=== PATIENT | male | born 1960 | race Caucasian/White ===

== ENCOUNTER → 2018-05-28 09:27 | Outpatient (CLI) | payer OTHER, SELFPAY ==
--- NOTE | 2018-05-28 | DI.MRI.S_ITS ---
PROCEDURE: MR ORBITS FACE NECK WO/W CON INDICATIONS: Ischemic optic neuropathy, left eye TECHNIQUE: Noncontrast sagittal T1 spin echo, axial FLAIR, axial gradient echo, axial diffusion and ADC acquired through the brain. Coronal STIR, thin-slice axial T1 spin echo through the orbits. After the administration of contrast, thin-slice axial and coronal T1 spin echo with fat saturation through the orbits, axial T1 spin echo with fat saturation through the brain. COMPARISON: None. FINDINGS: Image quality: Excellent. Orbits: Globes are symmetrical. The optic nerves are normal in size, without abnormal signal or enhancement. No retrobulbar masses or fat abnormalities. The extra-ocular muscles are normal and symmetric in appearance. Lacrimal glands are normal. Optic chiasm is normal. Periorbital soft tissues appear normal. CSF spaces: Ventricles are normal in size and shape. Basal cisterns are patent. No extra-axial fluid collections. Brain: No intracranial bleeds or mass effects. No abnormal intracranial enhancement. Osei-white matter interface is intact. Diffusion weighted images demonstrate no acute ischemic insults. Pituitary gland appears normal, without sellar or suprasellar masses. Brainstem appears normal. Normal intravascular flow voids are present. Skull and face: Calvarial marrow is normal in signal. Sinuses: Sinuses and mastoids are clear. IMPRESSION: Normal-appearing orbits by MRI. Dictated by: Dk Mark M.D. on 05/28/2018 at 10:59 Approved by: Dk Mark M.D. on 05/28/2018 at 11:01
== END ==
PROVIDERS: Family Provider Nurse Practitioner; PCP Family Medicine; Visit Provider Ophthalmology
DX: H47.012 Ischemic optic neuropathy, left eye (principal); H53.453 Other localized visual field defect, bilateral; G44.52 New daily persistent headache (NDPH)
CPT/HCPCS: 70543